=== PATIENT | female | born 1990 | race Caucasian/White ===

== ENCOUNTER 2021-03-30 20:20 | Emergency (ER) | payer OTHER, SELFPAY ==
--- NOTE | ~2021-03-30 | XR_ITS ---
XR foot RT min 3V DATE: 03/30/2021 21:23 INDICATION: Dropped a case of soda and foot. Pain at first through third metatarsophalangeal joint TECHNIQUE: 4 views COMPARISON: None FINDINGS: Prominent os tibiale externum. Minimal enthesopathy of the inferior and posterior calcaneus. No fracture or dislocation, periosteal reaction or bone destruction or other significant abnormality of the right foot. IMPRESSION: No fracture or dislocation Reviewed, dictated and finalized at location A. IMPRESSION: No fracture or dislocation
[2021-03-30 20:43] VITALS: BP 158/87; PULSE 91; RESP 16; TEMP 37.1; O2SAT 100
--- NOTE | 2021-03-30 22:02 | ED.LOWEXIN ---
HPI - Extremity Injury (Lower) General Chief Complaint: Extremity Injury, Lower Stated Complaint: R foot injury Time Seen by Provider: 03/30/21 21:07 Source: patient Mode of arrival: ambulatory Limitations: no limitations History of Present Illness HPI Narrative: 30-year-old female with no significant past medical history dropped a crate of soda on her right foot prior to arrival. Patient complaining of right toe pain and swelling and contusion. No other injury. No LOC. No previous injury to the foot. Able to bear weight pain is worse with movement improves with rest. Pain is located in the right dorsal toe radiates to the right dorsal foot. Related Data Home Medications Medication Instructions Recorded Confirmed aspirin [Aspir-81] 81 mg PO DAILY 03/30/21 03/30/21 Allergies Allergy/AdvReac Type Severity Reaction Status Date / Time No Known Allergies Allergy Unverified 03/30/21 21:00 Review of Systems Review of Systems: CONSTITUTIONAL: no fever, no weight loss, no confusion EYES: no vision changes, no eye pain ENT: no rhinorrhea, no sore throat, no difficulty swallowing CARDIOVASCULAR: no chest pain, no leg edema, no palpitations RESPIRATORY: no cough, no shortness of breath, no hemoptysis GASTROINTESTINAL: no abdominal pain, no nausea, no vomiting, no diarrhea GENITOURINARY: no flank pain, no dysuria, no hematuria SKIN: no rash, no jaundice MUSCULOSKELETAL: R foot pain, no back pain, no trauma. NEUROLOGIC: No headache, no dizziness, no focal weakness PSYCHIATRIC: No hallucinations, no suicidal ideation Exam Narrative: General: alert, afebrile, answering all questions appropriately Head: normocephalic, atraumatic Eyes: EOMI bilaterally, anicteric, no injection ENT: moist mucous membranes, oropharynx patent, no rhinorrhea Neck: supple, trachea midline, no JVD Chest: equal chest rise bilaterally, no chest wall trauma noted EXT: R foot: skin intact, swelling, bruising to dorsal great toe, APROM intact, nailbed intact, moving all extremities equally Skin: warm, dry, no pallor Neuro: alert, oriented x 3; CN 2-12 grossly intact, no dysarthria Psych: affect appropriate, though content normal Course Course Emergency Course: Patient ambulating without difficulty; ice applied. Foot xray with no acute process. Vital Signs Vital signs: Vital Signs Temperature 37.1 C 03/30/21 20:43 Pulse Rate 91 03/30/21 20:43 Respiratory Rate 16 03/30/21 20:43 Blood Pressure 158/87 H 03/30/21 20:43 Pulse Oximetry 100 03/30/21 20:43 Temperature 37.1 C 03/30/21 20:43 Pulse Rate 90 03/30/21 22:35 Respiratory Rate 18 03/30/21 22:35 Blood Pressure 153/92 H 03/30/21 22:35 Pulse Oximetry 100 03/30/21 22:35 MDM - Extremity Injury (Lower) Differential Diagnosis Differential diagnosis: Likely fracture of toe and other (foot fracture, contusion, sprain, strain) Medical Records Attestation: I reviewed the patient's medical records. Imaging Data Radiologist's impression: Impressions Foot X-Ray 03/30/21 21:25 IMPRESSION: No fracture or dislocation Discharge Plan Discharge Clinical Impression: Contusion of great toe of right foot Patient Disposition: Home, Self-Care Condition: Stable Instructions: Antibiotic Form, Contusion in Adults (ED) Additional Instructions: Ice, elevate and ibuprofen as needed for pain. Followup with PMD if no improvement. Prescriptions: No Action aspirin [Aspir-81] 81 mg Tablet,Delayed Release (Dr/Ec) 81 mg PO DAILY RF: 0 Follow-up/Referrals: PHYSICIAN,QUALITY SYSTEMS ENGINEER [Primary Care Provider] - Time of Disposition: 22:09
[2021-03-30 22:35] VITALS: BP 153/92; PULSE 90; RESP 18; O2SAT 100
== END 2021-03-30 22:35 | disposition home or self-care (01) ==
PROVIDERS: Emergency Provider Emergency Medicine
DX: S90.111A Contusion of right great toe without damage to nail, initial encounter (principal); W20.8XXA Other cause of strike by thrown, projected or falling object, initial encounter
CPT/HCPCS: 73630; 99283

== ENCOUNTER 2021-09-13 17:34 | Emergency (ER) | payer OTHER, SELFPAY ==
[2021-09-13 17:43] VITALS: BP 154/92; PULSE 118; RESP 19; TEMP 37.1; O2SAT 98
[2021-09-13 17:57] LABS: Basophils Percent Auto 0.2 % (0.2-1.2); Eosinophils Percent Auto 0.3 % (0-4.4); Hematocrit 42.7 % (37.0-47.0); Immature Granulocyte Absolute 0.04 K/mm3 (0.00-0.031); Immature Granulocyte Percent A 0.3 % (0-0.5); Lymphocytes Absolute Auto 0.58 K/mm3 (0.9-3.2); Lymphocytes Percent Auto 4.5 % (18.3-44.2); Mean Corpuscular HGB Conc 30.4 g/dl (32-36); Mean Corpuscular Hemoglobin 23.7 pg (26-34); Mean Corpuscular Volume 77.8 fl (80-100); Mean Platelet Volume 9.6 fl (7.4-10.4); Monocytes Absolute Auto 0.4 K/mm3 (0.1-0.6); Monocytes Percent Auto 3.3 % (2.6-8.5); Neutrophils Absolute Auto 11.9 K/mm3 (1.3-6.7); Neutrophils Percent Auto 91.4 % (45.5-73.1); Platelet Count Result 316 k/mm3 (150-375); Red Blood Count 5.49 M/mm3 (4.2-5.4); Red Cell Distribution Width 14.3 % (11.5-14.5)
[2021-09-13 18:06] LABS: Alanine Aminotransferase 26 U/L (4-35); Albumin Level 4.4 g/dL (3.5-5.1); Alkaline Phosphatase 133 U/L (38-126); Anion Gap 10 mmol/L (8-16); Aspartate Amino Transferase 29 U/L (14-36); Bilirubin,Total 0.7 mg/dL (0.2-1.3); Blood Urea Nitrogen 21 mg/dL (7-17); Calcium 8.5 mg/dL (8.4-10.2); Carbon Dioxide 22 mmol/L (22-30); Chloride 105 mmol/L (98-107); Estimated CRCL calculation 127 ml/min; Estimated Glomerular Filt Rate > 60; Glucose 147 mg/dL (65-110); Lipase 33 U/L (23-300); Potassium 4.5 mmol/L (3.4-5.0); Sodium 137 mmol/L (137-145)
--- NOTE | 2021-09-13 19:18 | ED.NAVMDI ---
HPI - Nausea/Vomiting/Diarrhea General Chief complaint: Nausea/Vomiting/Diarrhea Stated complaint: N/V Time Seen by Provider: 09/13/21 18:14 History of Present Illness HPI Narrative: 31-year-old female presents the emergency room with complaints of nausea vomiting diarrhea that began at 5:00 this morning. Symptoms are associated with body aches and headache. Patient denies fever, denies abdominal pain. Related Data Home Medications Medication Instructions Recorded Confirmed aspirin [Aspir-81] 81 mg PO DAILY 03/30/21 03/30/21 Allergies Allergy/AdvReac Type Severity Reaction Status Date / Time No Known Allergies Allergy Unverified 03/30/21 21:00 Review of Systems Review of Systems: CONSTITUTIONAL: Denies fever, chills, or sweats. EYES: Denies visual changes, redness, or discharge. ENT: Denies rhinorrhea, congestion, sore throat, or otalgia. CARDIOVASCULAR: Denies chest pain, palpitations, or edema. RESPIRATORY: Denies cough or dyspnea. GASTROINTESTINAL: Reports vomiting and diarrhea GENITOURINARY: Denies dysuria or hematuria. SKIN: Denies rash or itching. MUSCULOSKELETAL: Denies back pain, joint pain, or myalgia. NEUROLOGIC: Denies headache, numbness, dizziness, or weakness. PSYCHIATRIC: Denies anxiety or depression. Exam Narrative: GENERAL: Well-appearing, well-nourished, morbidly obese and in no acute distress. HEAD: Normocephalic, atraumatic. EYES: PERRLA and EOMI. CHEST: Clear to auscultation. No respiratory distress. No wheezes rales or rhonchi HEART: Regular rate and rhythm. No murmur heard. Normal peripheral pulses. ABDOMEN: Soft, nontender, nondistended, normal active bowel sounds. EXTREMITIES: Normal range of motion. No edema. SKIN: Warm, dry, no rash. NEURO: No focal deficits. Alert and oriented x3. PSYCH: Normal mood and affect. Course Vital Signs Vital signs: Vital Signs Temperature 37.1 C 09/13/21 17:43 Pulse Rate 118 H 09/13/21 17:43 Respiratory Rate 19 09/13/21 17:43 Blood Pressure 154/92 H 09/13/21 17:43 Pulse Oximetry 98 09/13/21 17:43 Temperature 37.1 C 09/13/21 17:43 Pulse Rate 118 H 09/13/21 17:43 Respiratory Rate 19 09/13/21 17:43 Blood Pressure 154/92 H 09/13/21 17:43 Pulse Oximetry 98 09/13/21 17:43 MDM - Nausea/Vomiting/Diarrhea MDM Narrative Medical decision making narrative: 31-year-old female presented emergency room complaints of nausea vomiting and diarrhea since this morning. CBC shows a slightly elevated WBC this is likely due to the vomiting and diarrhea. CMP shows a elevated blood sugar otherwise unremarkable. Patient has responded well to fluids and antiemetics. Differential Diagnosis Differential diagnosis: Likely food poisoning and gastroenteritis Medical Records Attestation: I reviewed the patient's medical records. Lab Data Attestation: I reviewed the patient's lab results. Result diagrams: 09/13/21 17:46 09/13/21 17:46 Labs: Lab Results 09/13/21 09/13/21 Range/Units 17:46 17:46 WBC 13.0 H (4.5-10.0) K/mm3 RBC 5.49 H (4.2-5.4) M/mm3 Hgb 13.0 (12.0-15.0) g/dL Hct 42.7 (37.0-47.0) % MCV 77.8 L (80-100) fl MCH 23.7 L (26-34) pg MCHC 30.4 L (32-36) g/dl RDW 14.3 (11.5-14.5) % Plt Count 316 (150-375) k/mm3 MPV 9.6 (7.4-10.4) fl Immature Gran % (Auto) 0.3 (0-0.5) % Neut % (Auto) 91.4 H (45.5-73.1) % Lymph % (Auto) 4.5 L (18.3-44.2) % Steele % (Auto) 3.3 (2.6-8.5) % Eos % (Auto) 0.3 (0-4.4) % Baso % (Auto) 0.2 (0.2-1.2) % Lymph # (Auto) 0.58 L (0.9-3.2) K/mm3 Steele # (Auto) 0.4 (0.1-0.6) K/mm3 Eos # (Auto) 0.0 (0-0.3) K/mm3 Baso # (Auto) 0.0 (0.0-0.1) K/mm3 Abs Immat Gran (auto) 0.04 H (0.00-0.031) K/mm3 Absolute Neuts (auto) 11.9 H (1.3-6.7) K/mm3 Absolute Nucleated RBC 0.0 (0.0-0.012) K/mm3 Nucleated RBC % 0.0 (0.0-0.2) % Sodium 137 (137-145) mmol/L Potassium 4.5 (3.4-5.0) mmol/L Chloride 1
[2021-09-13] MEDS: SODIUM CHLORIDE 0.9% IV 1,000 ML 999 ML IV CONT (20:34)
[2021-09-13] MEDS: ONDANSETRON INJ 4 MG/2 ML VIAL IV PUSH (20:35)
[2021-09-13 21:25] VITALS: BP 120/62; PULSE 110; RESP 18; O2SAT 100
== END 2021-09-13 21:25 | disposition home or self-care (01) ==
PROVIDERS: Emergency Medicine; Emergency Provider Nurse Practitioner Family
DX: A05.9 Bacterial foodborne intoxication, unspecified (principal); Z79.82 Long term (current) use of aspirin
CPT/HCPCS: 36415; 80053; 81025; 83690; 85025; 96361; 96374; 99284; J2405; J7030

== ENCOUNTER 2024-01-25 19:07 | Emergency (ER) | payer MEDICAID, SELFPAY ==
[2024-01-25 19:13] VITALS: BP 139/76; PULSE 88; RESP 20; TEMP 36.9; O2SAT 100
--- NOTE | 2024-01-25 20:15 | ED.EYEPROB ---
HPI - Eye Problem General Chief complaint: Eye Problems Stated complaint: feels like something is in my eye Time Seen by Provider: 01/25/24 19:29 History of Present Illness HPI Narrative: Patient is a 33-year-old female who presents to the emergency department this evening complaining right eye pain. Patient states that she feels as though there is something in her right eye and she tried to get it out but did not see anything in her right eye. Patient also admits that her eye has been itching and has now noticed that her eye is red and has been bothering her. Patient states that she had similar symptoms in the past and was prescribed antibiotic eyedrops which she had an allergic reaction to and states that the only thing that works for her is the erythromycin ointment. Denies any fevers or chills at home, denies any URI symptoms. No additional symptoms or concerns plan. Related Data Home Medications Medication Instructions Recorded Confirmed aspirin 81 mg tablet,delayed 81 mg PO DAILY 03/30/21 03/30/21 release Allergies Allergy/AdvReac Type Severity Reaction Status Date / Time No Known Allergies Allergy Unverified 03/30/21 21:00 Review of Systems Review of Systems: All systems are reviewed and are negative unless stated otherwise in the HPI. Exam Narrative: General: Alert, awake, afebrile, in no acute distress. HEENT: PERRL, no rhinorrhea, no post nasal drip, oropharynx clear, Right conjunctival injection, small corneal abrasion in the center of the eye noted with fluorescein staining, no dendritic lesions, no sidel sign, no foreign body identified with lid eversion. No pain with extraocular movement, no evidence of orbital cellulitis. Cardiovascular: Regular rate and rhythm, no murmurs, rubs or gallops, no peripheral edema. Respiratory: Clear to auscultation bilaterally, no tachypnea, no wheezing, no rhonchi, no rubs, no respiratory distress. Abdomen: Soft, nontender, nondistended, no rebound, no guarding, no peritoneal signs. Musculoskeletal: No joint swelling or deformity, normal muscle tone. Skin: No rashes or petechia, no signs of infection. Neurological: Alert and oriented to person, place, and time. Follows all commands. No focal deficits, speech is clear and fluent. Course Vital Signs Vital signs: Vital Signs Temperature 98.4 F 01/25/24 19:13 Pulse Rate 88 01/25/24 19:13 Respiratory Rate 20 01/25/24 19:13 Blood Pressure 139/76 01/25/24 19:13 Pulse Oximetry 100 01/25/24 19:13 Oxygen Delivery Room Air 01/25/24 19:13 Temperature 98.4 F 01/25/24 19:13 Pulse Rate 88 01/25/24 19:13 Respiratory Rate 20 01/25/24 19:13 Blood Pressure 139/76 01/25/24 19:13 Pulse Oximetry 100 01/25/24 19:13 Oxygen Delivery Room Air 01/25/24 19:13 MDM - Eye Problem MDM Narrative Medical decision making narrative: The patient was evaluated by myself in the emergency department. History is obtained from patient who is an independent historian and physical exam was performed. External medical records were reviewed at this time. Right eye was anesthetized using tetracaine eye drops and fluorescein staining was used to stain the right eye. Wood's lamp was used to visualize the eye and patient was noted to have a small 2 mm corneal abrasion in the center of her eye field, no foreign bodies identified with lid eversion, no dendritic lesions or sidel sign. Patient tolerated procedure well. Differential diagnosis considerations include foreign body, corneal abrasion, conjunctivitis. Comorbidities impacting this visit include none. I have evaluated and discussed social determinants of health with the patient that could potentially impact subsequent diagnosis and treatment plans. On repeat assessment of the patient, reevaluation revealed that the patient is doing well and is in no acute distress. Patient symptoms have improved since she arrived to our emergency departme
== END 2024-01-25 20:46 | disposition home or self-care (01) ==
PROVIDERS: Emergency Provider Emergency Medicine
DX: S05.01XA Injury of conjunctiva and corneal abrasion without foreign body, right eye, initial encounter (principal); X58.XXXA Exposure to other specified factors, initial encounter
CPT/HCPCS: 99283

== ENCOUNTER 2025-05-22 13:32 | Emergency (ER) | payer OTHER, MEDICAID, SELFPAY ==
--- NOTE | ~2025-05-22 | XR_ITS ---
XR ankle LT 2V 05/22/2025 13:59 INDICATION: Left ankle pain after fall PROCEDURE: 2 views left ankle COMPARISON: No prior studies for comparison. FINDINGS: Fracture, dislocation or subluxation is not identified. Mild lateral soft tissue swelling. There are small degenerative calcaneal enthesophytes. Mild degenerative changes of the midfoot. No foreign bodies are identified. IMPRESSION: 1: NO ACUTE BONE OR JOINT ABNORMALITY IDENTIFIED. Reviewed, dictated and finalized at location [facility]. [facility]
[2025-05-22 13:36] VITALS: BP 133/87; PULSE 86; RESP 16; TEMP 36.6; O2SAT 100
--- NOTE | 2025-05-22 14:38 | ED_ITS ---
HPI - Extremity Injury (Lower) General Chief Complaint: Extremity Injury, Lower Stated Complaint: left ankle injury Time Seen by Provider: 05/22/25 13:41 History of Present Illness HPI Narrative: Patient is a 35-year-old female who presents ER with pain and swelling to her left ankle. She hurts over bilateral malleoli. She has swelling over the lateral malleolus. She was holding her child hand in walking down the stairs caring cup cakes and other hand when she had the back of her shoes stepped on and she fell down 4 steps. She cannot bear weight due to pain. She has mild change in sensation to the dorsum of left foot. She did not hit her head or lose consciousness. Related Data Home Medications ?Medication ?Instructions ?Recorded ?Confirmed ?Last Taken ?Type aspirin 81 mg tablet,delayed 81 mg PO DAILY 03/30/21 1 05/30/20 03/29/21 History release Allergies Allergy/AdvReac Type Severity Reaction Status Date / Time No Known Allergies Allergy Unverified 03/30/21 21:00 Review of Systems Review of Systems: All systems reviewed & are unremarkable except as noted in HPI and below Constitutional: Constitutional: Reports no additional constitutional complaints Cardiovascular: Cardiovascular: Reports no additional cardiovascular complaints Respiratory: Respiratory: Reports no additional respiratory complaints Musculoskeletal: Musculoskeletal: Reports no additional musculoskeletal complaints Neurologic: Reports system reviewed and no additional complaints, except as documented PMFSH Past Medical History Medical History (Updated 05/22/25 @ 14:45 by Tristin Guadalupe MD) Healthy female adult Exam Narrative: GENERAL: Well-appearing, well-nourished, and in no acute distress. HEAD: Normocephalic, atraumatic. ENT: Mucous membranes moist. HEART: Regular rate and rhythm. Normal peripheral pulses. EXTREMITIES: Left lower extremity exam without significant deformity. Mild swelling over lateral malleolus. Tenderness over bilateral malleoli. Able to plantar flex and dorsiflex. Sharp sensation intact throughout the foot. Normal inspection proximal to area of injury. SKIN: Warm, dry, no rash. NEURO: Alert and oriented x3. PSYCH: Normal mood and affect. Course Course Emergency Course: No fracture on imaging. Will provide Austen wrap and crutches. Recommend stirrup splint for home. Follow-up with PCP or orthopedic surgery if worsening. Vital Signs Vital signs: Vital Signs Temperature 97.9 F 05/22/25 13:36 Pulse Rate 86 05/22/25 13:36 Respiratory Rate 16 05/22/25 13:36 Blood Pressure 133/87 05/22/25 13:36 Pulse Oximetry 100 05/22/25 13:36 Oxygen Delivery Room Air 05/22/25 13:36 Temperature 97.9 F 05/22/25 13:36 Pulse Rate 86 05/22/25 13:36 Respiratory Rate 16 05/22/25 13:36 Blood Pressure 133/87 05/22/25 13:36 Pulse Oximetry 100 05/22/25 13:36 Oxygen Delivery Room Air 05/22/25 13:36 MDM Differential Diagnosis Differential Diagnosis: Ankle sprain, ankle dislocation, ankle fracture, nerve injury, paresthesia Imaging Data Attestation: I personally reviewed and interpreted this imaging study as fo llows: Radiologist's impression: ITS Impressions Ankle X-Ray 05/22/25 14:07 IMPRESSION: 1: NO ACUTE BONE OR JOINT ABNORMALITY IDENTIFIED. ADDENDUM: 05/22/25 [id number] Addendum: Additional oblique images of the left ankle performed. No acute fracture or traumatic malalignment identified. Discharge Plan Discharge Clinical Impression: Ankle sprain and strain Patient Disposition: Home Condition: Stable Instructions: Ankle Sprain (ED), P.R.I.C.E. Treatment (ED) Additional Instructions: Return the ER if you suffered a new injury, you have chest pain or shortness of breath, you have a swollen calf and ankle, or you have additional concerns. Patient Language: Bengali Prescriptions: New naproxen 375 mg tablet 375 mg PO BID Qty: 14 0RF No Action ondansetron 4 mg tablet,disintegrating 4 mg PO Q8H Qty: 14 0RF dicyclomine 10 mg capsule 10 mg PO BID Qty: 14 0RF aspirin [Aspir-81] 81 mg Tablet,Delayed Release (Dr/Ec) 81 mg PO DAILY erythromycin 5 mg/gram (0.5 %) ointment 1 applic RIGHT EYE Q6H 3 Days Qty: 3.5 0RF erythromycin 5 mg/gram (0.5 %) ointment 1 applic RIGHT EYE Q6H 5 Days Qty: 3.5 0RF Follow-up/Referrals: Juan Monroe MD [Physician, Orthopedics] - 1 Week Amos Walls MD [Physician, Family Practice] - 1 Week
== END 2025-05-22 15:04 | disposition home or self-care (01) ==
PROVIDERS: Emergency Provider Emergency Medicine
DX: S93.402A Sprain of unspecified ligament of left ankle, initial encounter (principal); W10.9XXA Fall (on) (from) unspecified stairs and steps, initial encounter
CPT/HCPCS: 73600; 99283